=== PATIENT | female | born 1955 | race African-American/Black ===

== ENCOUNTER 2023-01-31 08:34 | Outpatient (CLI) | payer MEDICARE | END 2023-01-31 08:35 | disposition home or self-care (01) | LOC: CSHWCC 08:34 | PROVIDERS: ATTEND Nurse Practitioner Family | DX: L98.499 Non-pressure chronic ulcer of skin of other sites with unspecified severity (principal); Z93.2 Ileostomy status | CPT/HCPCS: 97139; G0463; 99213 ==

== ENCOUNTER 2023-02-09 13:01 | Outpatient (CLI) | payer MEDICARE | END 2023-02-09 13:02 | disposition home or self-care (01) | LOC: CSHWCC 13:01 | PROVIDERS: ATTEND Nurse Practitioner Family | DX: L98.499 Non-pressure chronic ulcer of skin of other sites with unspecified severity (principal); Z93.2 Ileostomy status | CPT/HCPCS: 99212; G0463 ==

== ENCOUNTER 2024-06-19 08:10 | Outpatient (CLI) | payer MEDICARE | END 2024-06-19 08:11 | disposition home or self-care (01) | LOC: CSHWCC 08:10 | PROVIDERS: ATTEND Nurse Practitioner Family | DX: Z43.2 Encounter for attention to ileostomy (principal); L24.B3 Irritant contact dermatitis related to fecal or urinary stoma or fistula; C18.9 Malignant neoplasm of colon, unspecified | CPT/HCPCS: 99213; G0463 ==